=== PATIENT | male | born 1975 | race Caucasian/White ===

== ENCOUNTER 2023-04-11 11:51 | Emergency (ER) | payer MEDICAID, SELFPAY ==
[2023-04-11 11:52] VITALS: BP 169/99; PULSE 100; RESP 18; TEMP 36.8; O2SAT 99; BMI 37.8
[2023-04-11 12:00] VITALS: BP 156/82; PULSE 94; RESP 20; O2SAT 95
--- NOTE | 2023-04-11 12:02 | XR_ITS ---
PROCEDURE INFORMATION: Exam: XR Right Tibia and Fibula Exam date and time: 04/11/2023 12:18 PM Age: 47 years old Clinical indication: Injury or trauma; Other: Ankle gave out; Additional info: R ankle injury TECHNIQUE: Imaging protocol: Radiologic exam of the right tibia and fibula. Views: 2 views. COMPARISON: CR XR ANKLE RT 2V 04/11/2023 12:18 PM FINDINGS: Bones/joints: Complex comminuted ankle fracture involving distal tibia and fibula with gross malalignment. Remainder of the osseous structures of the tibia and fibula are intact. Soft tissues: Unremarkable. IMPRESSION: Complex comminuted ankle fracture. Please refer to report of right ankle.
--- NOTE | 2023-04-11 12:02 | XR_ITS ---
PROCEDURE INFORMATION: Exam: XR Right Foot Exam date and time: 04/11/2023 12:18 PM Age: 47 years old Clinical indication: Injury or trauma; Other: Ankle gave out; Other: Anklke gave out; Additional info: R ankle injury TECHNIQUE: Imaging protocol: Radiologic exam of the right foot. Views: 1 or 2 views. 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 There is malalignment involving the 1st and 2nd tarsal metatarsal joints with widening of the 1st intermetatarsal space indicating a Lisfranc's injury of indeterminate age. Additional degenerative changes involving the 1st 2nd and 3rd MTP joint. Acute comminuted fractures of the distal tibia and fibula again noted. Soft tissues: Normal. IMPRESSION: 1. 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 Please correlate with history. 2. Additional findings involving the 1st and 2nd tarsal metatarsal joints suggestive of underlying Lisfranc's dislocation which could be further assessed on CT exam
--- NOTE | 2023-04-11 12:02 | XR_ITS ---
PROCEDURE INFORMATION: Exam: XR Right Ankle Exam date and time: 04/11/2023 12:18 PM Age: 47 years old Clinical indication: Injury or trauma; Other: Ankle gave out; Additional info: R ankle injury TECHNIQUE: Imaging protocol: Radiologic exam of the right ankle. Views: 1 or 2 views. COMPARISON: CR XR FOOT RT 2V 04/11/2023 12:18 PM FINDINGS: Limitations: Evaluation is technically limited due to lack of AP projection. Bones/joints: Complex comminuted displaced fractures of the distal tibia and fibula with malalignment at the ankle mortise difficult to adequately assess on this study. Soft tissues: Diffuse soft tissue swelling along the ankle mortise. IMPRESSION: 1. Limited study. 2. Complex comminuted fractures distal tibia and fibula with gross malalignment at the ankle mortise. CT examination of the ankle and foot recommended for further evaluation.
--- NOTE | 2023-04-11 12:25 | PC.NURSE ---
rad at for cxr
[2023-04-11 12:30] VITALS: BP 170/99; PULSE 100; RESP 20; O2SAT 98
--- NOTE | 2023-04-11 12:30 | ED_ITS ---
Discharge Plan Disposition Patient Disposition: Home, Self-Care Condition: Good Prescriptions Prescriptions: New oxycodone 5 mg tablet 5 mg PO Q8H PRN (Reason: severe pain (scale score 7-10)) Qty: 8 0RF Referrals Follow up/Referrals: Hernesto Zheng DO [Staff Physician] - See instructions (R ankle/foot) Madi Saxena MD [Primary Care Provider] - See instructions Activity Restrictions/Add. Instructions Additional Instructions/Restrictions: You were evaluated in the ER. You are appropriate for discharge at this time. Keep the splint clean and dry. Elevate the foot to help with swelling. If you notice discoloration, numbness, pain, or any new/worsening symptoms, return to the ER. Do not get the splint wet, do not apply any pressure to the splint. Use crutches to get around. Call Dr. Zheng's office first thing tomorrow morning and make an appointment. Take the prescribed oxycodone if needed for breakthrough pain, otherwise just take Tylenol and ibuprofen. Do not exceed recommended doses on the bottle. Follow-up with your primary care physician as well. Return to the ER with new, worsening, or otherwise concerning symptoms. Clinical Impressions Clinical Impression: Fracture of right tibia and fibula Other Amb Orders Other Ambulatory Orders: XR ankle RT 2V (Routine) Timeframe: 20230411 Facility: [facility] - Location: Radiology Ordered By: Gopal Dodson XR foot RT 2V (Routine) Timeframe: 20230411 Facility: [facility] - Location: Radiology Ordered By: Gopal Dodson XR tibia fibula RT 2V (Routine) Timeframe: [id number] Facility: [facility] - Location: Radiology Ordered By: Gopal Dodson Discharge ED Provider: Gopal Dodson General Adult HPI General Chief complaint: Extremity Injury, Lower Stated complaint: fall Time Seen by Provider: 04/11/23 12:21 Mode of Arrival: EMS Source of Information: Patient and EMS Limitations: Physical Limitations Description of Symptoms (Recalled from ER Triage Doc. by RN): Patient states he was taking trash out this morning and slid and dislocated his right ankle. Patient states he fell a couple days ago and twisted the same ankle but only noticed some bruising. History of Present Illness HPI narrative: This reportedly otherwise healthy 47-year-old male who takes no daily medicat ions, no known drug allergies presents to the ER with concerns of right ankle pain. Patient states he was taking the trash out when his right ankle gave out twisting to the inside. He states he only noticed some bruising but was unable to walk and had to crawl back to the house. Patient states he also fell a few days ago but has been able to ambulate since that time until today. He denies any other injuries in the accident. No other complaints. He has not taken any medications for pain. Related Data Previous Rx's Medication Instructions Recorded oxycodone 5 mg tablet 5 mg PO Q8H PRN severe pain (scale 04/11/23 score 7-10) #8 tabs Allergies Allergy/AdvReac Type Severity Reaction Status Date / Time No Known Allergies Allergy Verified 04/11/23 12:02 [facility] Disclaimer: The information contained in this section may have been updated after the patient was seen, as this information can be updated by other users. Social History Smoking Status: Never smoker alcohol intake: never current occupational status: other Travel in the last 8 weeks: None ROS Obtained: Yes All systems reviewed & no additional complaints except as documented Constitutional Constitutional: Denies chills, Denies fever(s), Denies headache(s) and Denies weakness Eyes Eyes: Denies change in vision ENT Ears, Nose, Mouth, and Throat: Denies dizziness, Denies headache(s), Denies nasal congestion and Denies sore throat Cardiovascular Cardiovascular: Denies chest pain, Denies dyspnea and Denies leg edema Respiratory Respiratory: Denies cough and Denies dyspnea Gastrointestinal Gastrointestingal: Denies constipation, diarrhea, nausea or vomiting Genitourinary Male Genitourinary: Denies difficulty urinating Musculoskeletal Musculoskeletal: Reports arthralgias, Reports deformity, Reports joint swelling, Denies myalgias, Denies numbness and Denies tingling Integumentary/Breasts Skin/Breast: Denies change in pigmentation Neurologic Neurologic: Denies dizziness, Denies headache(s), Denies numbness, Denies tingling and Denies weakness Physical Exam General General appearance: alert and in no apparent distress Head Head exam: atraumatic and normocephalic Eye Eye exam: Present PERRL and EOMI ENT ENT exam: Present mucous membranes moist Neck Neck exam: Present normal inspection and full ROM Chest Chest inspection: Present symmetric chest wall rise Respiratory Respiratory exam: Absent respiratory distress or stridor Cardiovascular Cardiovascular exam: Present regular rate and normal rhythm Abdominal Exam Abdominal exam: Present soft; Absent distention or tenderness Extremities Exam Extremities exam: Present tenderness (Pain, tenderness, swelling to right ankle with deformity. 2+ pulses distally, patient is able to move the toes and has full sensation. Neurovascularly intact.) and joint swelling; Absent full ROM (Unable to range the right ankle secondary to swelling, deformity, pain) Neurological Exam Neurological exam: Present alert and oriented X3; Absent motor sensory deficit Psychiatric Psychiatric exam: Present normal affect and normal mood Skin Skin exam: Present warm and dry Medical Decision Making Christian Inquiry Pt receiving controlled substance: Yes Christian was queried for this patient: Yes Risks and benefits of using a controlled substance: were discussed with pt by me Vital Signs: 04/11/23 11:52 04/11/23 12:00 04/11/23 12:30 Temperature 98.2 F Temperature Source Tympanic Pulse Rate 94 H 100 H Pulse Rate [Left] 100 H Respiratory Rate 18 20 20 Blood Pressure 156/82 H 170/99 H Blood Pressure [Right Arm] 169/99 H Blood Pressure Mean 106 111 Blood Pressure Mean [Right Arm] 122 Blood Pressure Source [Right Arm] Automatic Cuff 02 Sat by Pulse Oximetry 99 95 98 Oxygen Delivery Method Room Air 04/11/23 13:00 04/11/23 14:55 Temperature 98.5 F Temperature Source Pulse Rate 97 H 90 Pulse Rate [Left] Respiratory Rate 20 20 Blood Pressure 159/102 H 159/102 H Blood Pressure [Right Arm] Blood Pressure Mean 112 Blood Pressure Mean [Right Arm] Blood Pressure Source [Right Arm] 02 Sat by Pulse Oximetry 96 Oxygen Delivery Method Room Air Orders (Tests/Meds): ED MEDICATIONS Discontinued Medications Generic Name Dose Route Start Last Admin Trade Name Freq PRN Reason Stop Dose Admin Lidocaine HCl 40 ml 04/11/23 13:02 04/11/23 13:52 Lidocaine 1% 20ml Mdv IJ 04/11/23 13:03 Not Given ONCE ONE Oxycodone HCl 5 mg 04/11/23 12:31 04/11/23 12:54 Oxycodone 5mg Immediate Release Tablet PO 04/11/23 12:32 5 mg ONCE ONE Administration ORDERS Category Date Time Status CT ankle RT wo con Stat Cat Scan 04/11/23 13:[address] foot RT wo con Stat Cat Scan 04/11/23 13:51 Completed Ankle XR -Right minimum 3 Views [XR ankle RT min 3V] Exams 04/11/23 13:51 Completed Stat Foot XR right 2 views [XR foot RT 2V] Stat Exams 04/11/23 12:02 Completed XR ankle RT 2V Stat Exams 04/11/23 12:02 Completed XR tibia fibula RT 2V Stat Exams 04/11/23 12:02 Completed Medical Decision Narrative: In summary, this 47year old male presents to the emergency department today with right ankle pain after fall. On initial evaluation patient is hemodynamically stable, afebrile, has obvious deformity, swelling, pain with mild bruising of the right ankle, neurovascularly intact distally, no other abnormalities on exam. Differential diagnosis includes but is not limited to fracture, dislocation, sprain, neurovascular injury. Based on these concerns, I ordered x- ray imaging of the right lower extremity. Patient received oral oxycodone for treatment. XR personally interpreted demonstrates both bone fracture of the right ankle as well as possible findings of Lisfranc fracture. See radiology read for final interpretation. I had an interactive discussion with Dr. Zheng with orthopedics regarding patient's injury. At this time he recommends reduction, splinting, CT imaging of the injury after reduction, and outpatient follow-up. Patient's right lower extremity was reduced and splinted. See procedure note for details. Postreduction films were personally interpreted and demonstrate improved alignment of fracture. Patient continues to be neurovascularly intact throughout. CTs were ordered and performed for surgical planning. See radiology reads for interpretations. On reassessment patient remained stable, he has tolerated procedures well and is appropriate for discharge. He was given instructions on symptomatic management including prescription for oxycodone, follow-up instructions, instructions for splint care, and strict return precautions for the ER. He indicated understanding patient was discharged in stable condition. Procedures Orthopedic Fracture Reduction Fracture #1: Time Out Performed: Yes Side: right Fracture Reduction Location: tibia and fibula Analgesia: none (Patient tolerated manipulation extremely well without pain after having only received oral oxycodone) Technique: direct manipulation and traction/counter-traction Post Reduction X-rays Demonstrate: acceptable reduction Post-reduction neuro exam: intact and no change Post-reduction vascular exam: intact and no change Splint Applied: Yes (Splint personally applied and adjusted by myself. Neurovascularly intact) Patient Tolerated Procedure: well Critical Care Critical Care Time Critical Care Time: No
[2023-04-11] MEDS: OXYCODONE 5MG IMMEDIATE RELEASE TABLET 5 MG PO (12:54)
--- NOTE | 2023-04-11 12:57 | PC.NURSE ---
DR MIRANDA SPEAKING WITH DR CROWDER
[2023-04-11 13:00] VITALS: BP 159/102; PULSE 97; RESP 20; O2SAT 96
--- NOTE | 2023-04-11 13:51 | XR_ITS ---
PROCEDURE INFORMATION: Exam: XR Right Ankle Exam date and time: 04/11/2023 1:51 PM Age: 47 years old Clinical indication: Injury or trauma; Other: Post reduction; Other: Ankle TECHNIQUE: Imaging protocol: Radiologic exam of the right ankle. Views: 3 or more views. COMPARISON: CR XR ANKLE RT 2V 04/11/2023 12:18 PM FINDINGS: Limitations: Assessment is limited due to obscuring cast. Bones/joints: Acute comminuted fracture distal fibula with mild displacement/malalignment. Acute transverse fracture distal tibia. Mild malalignment at the ankle mortise. No nathan dislocation. Soft tissues: Unremarkable. IMPRESSION: 1. Limited study. 2. Acute comminuted fracture distal fibula acute transverse fracture distal tibia with some malalignment at the ankle mortise. No nathan dislocation.
--- NOTE | 2023-04-11 13:51 | CT_ITS ---
PROCEDURE INFORMATION: Exam: CT Right Lower Extremity Without Contrast, Ankle Exam date and time: 04/11/2023 2:08 PM Age: 47 years old Clinical indication: Injury or trauma; Fall; Other: Post reduction (ankle gave out); Additional info: Fall FX TECHNIQUE: Imaging protocol: CT of the right lower extremity without contrast was performed. Exam focused on the ankle. Radiation optimization: All CT scans at this facility use at least one of these dose optimization techniques: automated exposure control; mA and/or kV adjustment per patient size (includes targeted exams where dose is matched to clinical indication); or iterative reconstruction. COMPARISON: CR XR ANKLE RT MIN 3V 04/11/2023 1:51 PM FINDINGS: Bones/joints: Acute comminuted transverse fracture distal tibia with slight malalignment. Multiple small bone fragments along the fracture line. There also small bone fragments interposed between the talar dome and tibial plafond resulting in asymmetric widening of the ankle mortise. There is a comminuted fracture of the distal fibula with some overriding and malalignment of the fracture components. Degenerative changes in the midfoot partially visualized. Soft tissues: Generalized soft tissue swelling along the ankle mortise. IMPRESSION: 1. Acute comminuted fractures distal tibia and fibula with multiple small bone fragments at the fracture sites. 2. Multiple small bone fragments along the ankle mortise resulting in mild malalignment. 3. Midfoot osteoarthritis (please refer to CT exam of the midfoot).
--- NOTE | 2023-04-11 13:51 | CT_ITS ---
PROCEDURE INFORMATION: Exam: CT Right Lower Extremity Without Contrast, Foot Exam date and time: 04/11/2023 2:11 PM Age: 47 years old Clinical indication: Injury or trauma; Fall; Other: Post reduction(ankle gave out); Additional info: Fall known FX TECHNIQUE: Imaging protocol: CT of the right lower extremity without contrast was performed. Exam focused on the foot. Radiation optimization: All CT scans at this facility use at least one of these dose optimization techniques: automated exposure control; mA and/or kV adjustment per patient size (includes targeted exams where dose is matched to clinical indication); or iterative reconstruction. COMPARISON: CR XR FOOT RT 2V 04/11/2023 12:18 PM FINDINGS: Bones/joints: There is a comminuted transverse fracture of the distal tibia just above the tibial plafond with small comminuted bone fragments along the fracture line. There is slight malalignment. There is a more comminuted fracture of the distal fibula above the lateral malleolus with 5 mm posterior displacement of the main fracture component multiple small bone fragments. There are multiple small bone fragments interposed between the tibial plafond and talar dome contributing to asymmetric widening of the ankle mortise. Moderate-advanced degenerative changes within the midfoot with degenerative joint space narrowing subchondral sclerosis marginal spurring and subchondral cyst formation. Findings are most pronounced at the tarsometatarsal articulation . There are multiple joint subluxations at the tarsometatarsal articulations with lateral diversion of the 2nd through 5th metatarsals and widening of the 1st intermetatarsal space indicating a Lisfranc separation. There are multiple loose bodies within the midfoot. Findings may in part be secondary to neuropathic joint. There are additional degenerative changes involving the 2nd and 3rd MTP joints with some deformity in flattening of the distal metatarsal heads. Soft tissues: Normal. IMPRESSION: 1. Acute comminuted fractures involving the distal tibia and distal fibula with multiple small bone fragments at the fracture site and interposed between the tibial plafond and talar dome resulting in mild malalignment of the ankle mortise. 2. Moderate-advanced midfoot osteoarthritis with superimposed Lisfranc's dislocation possibly secondary to neuropathic joint. Please correlate with history. 3. Degenerative changes 2nd and 3rd MTP joints with some deformity in flattening of the metatarsal heads.
[2023-04-11 14:55] VITALS: BP 159/102; PULSE 90; RESP 20; TEMP 36.9; O2SAT 96
--- NOTE | 2023-04-15 04:32 | PC.NURSE ---
chart accessed for ortho papers
== END 2023-04-11 14:58 | disposition home or self-care (01) ==
PROVIDERS: Emergency Provider Emergency Medicine; PCP Internal Medicine Adolescent Medicine
DX: S82.301A Unspecified fracture of lower end of right tibia, initial encounter for closed fracture; W18.40XA Slipping, tripping and stumbling without falling, unspecified, initial encounter; M25.571 Pain in right ankle and joints of right foot; S82.831A Other fracture of upper and lower end of right fibula, initial encounter for closed fracture
CPT/HCPCS: 27788; 27825; 73590; 73600; 73610; 73620; 73700; 99285

== ENCOUNTER 2023-04-13 11:58 | Outpatient (CLI) | payer MEDICAID, SELFPAY ==
--- NOTE | 2023-04-13 | ECG_ITS ---
APPROVED REPORT Exam: Resting ECG HR:98 bpm ECG Measurements Heart Rate 98 AXES VT 116 P 41 QRSd 88 QRS 31 QT 341 T -76 QTc 396 Conclusion SINUS RHYTHM WITH SHORT VT INTERVAL LEFT VENTRICULAR HYPERTROPHY NSST TW changes ABNORMAL ECG UNCONFIRMED REPORT Electronically signed by : Madi Saxena MD 04/13/2023 16:35:55
--- NOTE | 2023-04-13 12:26 | XR_ITS ---
FINAL REPORT CLINICAL HISTORY: Pre Op- surgery on right foot. soa FINDINGS: There is no evidence of effusion or other pleural disease. The lungs are hypoinflated with moderate right basilar atelectasis. The mediastinum has a normal appearance. The cardiac silhouette is unremarkable. IMPRESSION: Hypoinflation with moderate right basilar atelectasis. Reviewed, Interpreted and Dictated by David Gagnon MD Transcribed by Hanna Chow Authenticated and [facility]
[2023-04-13 12:47] LABS: Basophils # 0.1 K/mm3 (0-0.2); Basophils % 0.5 % (0.1-2.0); Eosinophils # 0.1 K/mm3 (0.0-0.4); Eosinophils % 1.2 % (0.1-12.0); Hematocrit 37.4 % (42.0-52.0); Hemoglobin 12.9 g/dL (14.1-18.0); Lymphocytes # 1.7 K/mm3 (0.7-4.5); Lymphocytes % 15.1 % (10-50); Mean Corpuscular HGB Conc 34.5 g/dL (31.8-35.4); Mean Corpuscular Hemoglobin 30.3 pg (27.0-31.2); Monocytes # 1.1 K/mm3 (0.1-1.0); Monocytes % 9.3 % (1.7-9.3); Neutrophils # 8.4 K/mm3 (1.8-7.8); Neutrophils % 73.9 % (37.0-80.0); Platelet Count 268 K/mm3 (142-424); Red Blood Count 4.25 M/mm3 (4.60-6.20); Red Cell Distribution Width 13.4 % (11.5-17.5); White Blood Count 11.3 K/mm3 (4.8-10.8)
[2023-04-13 12:57] LABS: Chloride 99 mmol/L (98-107); Potassium 4.2 mmoL/L (3.5-5.1); Sodium 133 mmol/L (136-145)
[2023-04-13 13:00] LABS: Alanine Aminotransferase 20 U/L (12-78); Albumin Level 3.3 g/dl (3.5-5.0); Albumin/Globulin Ratio 1.2 (1.1-1.8); Alkaline Phosphatase 111 U/L (38-126); Anion Gap 11.2 mEq/L (5-15); Aspartate Amino Transferase 27 U/L (17-59); Bilirubin,Total 1.2 mg/dl (0.2-1.3); Blood Urea Nitrogen 12 mg/dl (9-20); Carbon Dioxide 27 mmol/L (22.0-30.0); Estimated Glomerular Filt Rate 145 ml/min (>60); GFR (African American) 176 ML/MIN (>60); Globulin 2.8 g/dL (1.3-3.2); Total Protein,Serum 6.1 g/dl (6.3-8.2)
[2023-04-13 13:01] LABS: Glucose 265 mg/dl (74-100)
== END 2023-04-13 23:59 ==
PROVIDERS: Visit Provider Orthopaedic Surgery
DX: Z01.818 Encounter for other preprocedural examination (principal); S82.201A Unspecified fracture of shaft of right tibia, initial encounter for closed fracture; S82.401A Unspecified fracture of shaft of right fibula, initial encounter for closed fracture
CPT/HCPCS: 36415; 71046; 80053; 85025; 93005

== ENCOUNTER 2023-04-27 09:01 | Outpatient (CLI) | payer MEDICAID, SELFPAY ==
--- NOTE | 2023-04-27 09:06 | XR_ITS ---
FINAL REPORT CLINICAL HISTORY: right ankle fx COMPARISON: 04/11/2023 FINDINGS: RIGHT ANKLE: Three views of the right ankle were obtained. There is a comminuted fracture of the distal fibula once again identified, stable since the prior exam of April 11. There is also a transverse fracture of the distal tibia, also stable. There is callus formation identified new since the prior exam. There is a density in the superior midfoot seen on the lateral view only, that may represent a fracture fragment or may be in cast material. Relation is suggested. IMPRESSION: Comminuted fracture of the distal fibula, transverse fracture of the distal tibia, stable with slight callus formation since the prior exam of April 11. Density in the superior midfoot seen on the lateral view only, finding of uncertain significance but may represent a fracture fragment or be related to the patient's cast. Reviewed, Interpreted and Dictated by Brian Jamison III, MD Transcribed by Nereida Hull Authenticated and [facility]
== END 2023-04-27 23:59 ==
PROVIDERS: PCP Nurse Practitioner Family; Visit Provider Orthopaedic Surgery
DX: S82.891D Other fracture of right lower leg, subsequent encounter for closed fracture with routine healing (principal); W17.81XD Fall down embankment (hill), subsequent encounter
CPT/HCPCS: 73610

== ENCOUNTER 2023-05-24 06:26 | Outpatient (CLI) | payer MEDICAID, SELFPAY ==
[2023-05-24] VITALS (9 sets, daily range): BP systolic 94–164; BP diastolic 51–97; PULSE 63–90; RESP 16–18; O2SAT 98–99; BMI 36.9
--- NOTE | 2023-05-24 06:31 | CT_ITS ---
APPROVED REPORT Development Chemist: CLINICAL INDICATION Chest Pain TECHNIQUE Image Acquisition: A 128 slice MDCT scanner ([place] View) was used for data acquisition. A noncontrast coronary calcium scan was performed. A CT attenuation threshold of 130 Hounsfield units (HU) was used for the detection of calcium in contiguous voxels of 1 sq mm in area to be counted as individual lesions. Bolus tracking in the ascending aorta with a threshold of 180 HU was performed. Immediately afterwards, ECG synchronized cardiac CT was then performed from the cardiac base to apex using retrospective gating with ECG tube current modulation. A total of 85 mL of Isovue 370 mg/mL contrast medium was administered at 5 mL/sec followed by a saline flush using a biphasic injection protocol. A tube voltage of 120 KVp was used. The patient received the following medications prior to the cardiac CT. 125 mg of oral metoprolol 15 mg of intravenous metoprolol 15 mg of oral ivabradine 0.8 mg of sublingual nitroglycerin The average heart rate at the time of acquisition was 62 bpm and regular. Image Reconstruction Transaxial images were reconstructed at 0.67 mm slide thickness. Data was reviewed interactively on an advanced workstation capable of 2 and 3-dimensional displays in all conventional reconstruction formats, including multiplanar reformations, maximum intensity projections, curved multiplanar reformations, and volume rendered reconstructions. When applicable, selected routine images describing the relevant coronary anatomy and pathology were saved and sent to PACS. Complications None Technical Quality Overall image quality was good. Coronary artery opacification was adequate. Total DLP (Dose-Length Product) is 1324.5 mGy-cm. The reported value represents the total of one or more individual components during the CT acquisition of this date and at this time, and as such, the same value may appear in more than one CT report depending on the interpreting/reporting physicians. COMPARISON None FINDINGS CT Coronary Calcium Scoring LMA (Left Main Artery) = 0 LAD (Left Anterior Descending) = 38 LCX (Left Coronary Circumflex) = 191 RCA (Right Coronary Artery) = 19 Total Calcium Score = 247 using the AJ-130 method. The observed calcium score of 247 is at 98th percentile for subjects of the same age, sex, and race/ethnicity. The interpretation of the calcium heart score is based on the following continuum*: 0 = no calcified plaque detected (risk of coronary artery disease is very low ??? less than 5%) 1-10 = calcium detected in extremely minimal levels (risk of coronary diseases is still low ??? less than 10%) 11-100 = mild levels of plaque detected with certainty (mild or minimal narrowing of heart arteries is likely) 101-400 = definite,at least moderate levels of plaque detected (relatively high risk of a heart attack within 3-5 years) >401-999 = extensive levels of plaque detected (high risk of heart attack, high levels of vascular disease are present, high likelihood of at least one significant coronary narrowing) *The calcium heart score quantifies the burden of coronary calcification/plaque in the coronary arteries. The calcium heart score is not able to evaluate the presence or burden of non-calcified (i.e. soft) plaque. There is no identifiable calcification in the aortic valve, mitral annulus or mitral valve, pericardium, or myocardium. Coronary CT Angiography The coronary arterial system is right dominant. Quantitative Stenosis Grading: Left Main (LM): The left main originates normally from the left sinus of Valsalva. The LM bifurcates into the left anterior descending artery and left circumflex artery. The LM is patent with no evidence of atherosclerosis. Left Anterior Descending (LAD) and Diagonal Branches: The LAD gives off 3 diagonal branches. There is calcified plaque along the proximal LAD segment, but without luminal stenosis. There is no evidence of LAD-myocardial bridge. Left Circumflex (LCX) and Obtuse Marginals (OM): The LCX gives off 1 Obtuse Marginal (OM) branch. There is calcified plaque in the proximal and mid LCx segment, with 25-49% mild luminal stenosis in the mid LCx segment. Right Coronary Artery (RCA): The RCA originates normally from the right sinus of Valsalva. The RCA gives off a posterior descending artery (PDA) and posterolateral (PL) branches. There is calcified plaque along the proximal RCA, but without luminal stenosis. Non-Coronary Cardiac Findings: Analysis of the left ventricular (LV) structure and function was performed after 3-D reconstruction of the LV from axial images, with user-corrected automatic contouring for assessment of LV volumes and user-defined reconstruction from oblique planes for measurement of 3-D cardiac structure and function. -The left ventricle systolic function is normal. -There is no left atrial appendage filling defect. Two right pulmonary veins and two left pulmonary veins drain normally into the left atrium. -No pericardial thickening or calcification. -Central and branch pulmonary arteries in the [id number] are unremarkable. -Thoracic aorta within the visualized thoracic aortic-branches in the [id number] is unremarkable. Extracardiac Structures No significant extra-cardiac findings. Note, however, that this study is focused on the cardiac findings. IMPRESSION -Presence of coronary calcification with an Agatston score = 247 using the AJ-130 method. -The observed calcium score of 247 is at 98th percentile for subjects of the same age, sex, and race/ethnicity. -No evidence of significant flow-limiting atherosclerosis of the coronary arteries. -CAD-RADS 2. Management recommendations per ACC/AHA guidelines*, as clinically appropriate. *Recommendations: CAD RADS 0: Reassurance. Consider non-atherosclerotic causes of chest pain. CAD RADS 1: Consider non-atherosclerotic causes of chest pain. Consider preventive therapy and risk factor modification. CAD RADS 2: Consider non-atherosclerotic causes of chest pain. Consider preventive therapy and risk factor modification, particularly for patients with nonobstructive plaque in multiple segments. CAD RADS 3: Consider further functional testing. Consider symptom-guided anti-ischemic and preventive pharmacotherapy as well as risk factor modification per published guideline statements. CAD RADS 4A: Consider further functional testing or invasive coronary angiography with revascularization per published guideline statements. Consider symptom-guided anti-ischemic and preventive pharmacotherapy as well as risk factor modification per published guideline statements. CAD RADS 4B: Invasive coronary angiography recommended with revascularization per published guideline statements. Consider symptom-guided anti-ischemic and preventive pharmacotherapy as well as risk factor modification per published guideline statements. CAD RADS 5: Consider invasive angiography and/or viability assessment with revascularization per published guideline statements. Consider symptom-guided anti-ischemic and preventive pharmacotherapy as well as risk factor modification per published guideline statements. CRITICAL RESULT None COMMUNICATION Per this written report The coronary and cardiac findings of this CCTA were reviewed, reported, and signed by Theo Briones MD (Curator Of Collections) Conclusion Electronically signed by : Odilia Briones MD 05/27/2023 14:37:26
[2023-05-24] MEDS: IVABRADINE HCL 7.5MG TABLET *IVABRADINE+METOPROLOL REGIMINE 15 MG PO (07:34)
[2023-05-24] MEDS: METOPROLOL TARTRATE 50MG TABLET *IVABRADINE+METOPROLOL REGIMINE 75 MG PO (07:34)
[2023-05-24 08:22] LABS: Blood Urea Nitrogen 8 mg/dl (9-20); Calcium 9.8 mg/dl (8.4-10.2); Carbon Dioxide 30 mmol/L (22.0-30.0); Chloride 101 mmol/L (98-107); Creatinine Clearance Estimated 247 mL/min (50-200); Estimated Glomerular Filt Rate 145 ml/min (>60); GFR (African American) 176 ML/MIN (>60); Glucose 125 mg/dl (74-100); Sodium 139 mmol/L (136-145)
[2023-05-24] MEDS: METOPROLOL TARTRATE 50MG TABLET *IVABRADINE+METOPROLOL REGIMINE 50 MG PO (08:29)
[2023-05-24] MEDS: METOPROLOL TARTRATE 5MG/5ML VIAL *IVABRADINE+METOPROLOL REGIMINE 5 MG IV ×3 (09:20→09:33)
[2023-05-24] MEDS: NITROGLYCERIN 0.4MG SL TABLET 0.800000000000000044 MG SL (09:20)
[2023-05-24] MEDS: 0.9 % SODIUM CHLORIDE 50 ML VIAL IV (09:38)
[2023-05-24] MEDS: SODIUM CHLORIDE 0.9% 10ML SYR (RAD ONLY) 10 ML IV (09:38)
[2023-05-24] MEDS: IOPAMIDOL-370 (76%);100ML BOTTLE 85 ML IV (09:38)
--- NOTE | 2023-05-24 09:57 | CA_ITS ---
APPROVED REPORT EXAM: Comprehensive 2D, Doppler, and color-flow Echocardiogram Aluminum Can Collector: Nury Maguire RVT Ht: 5 ft 9 in Wt: 250lbs BSA: 2.27 BP: 163/95 mmHg Indications: PRE-OP,ABN EKG,CP,DM,HTN,HLD 2D Dimensions LA Volume 46.00 mL LA Volume Index 20.26 mL/m2 (M/F) 16-34 M-Mode Dimensions RVDd 3.17 cm (0.9-2.6) LA Diam 3.65 cm (1.9-4.0) LVDd 4.74 cm (3.5-5.7) LVDs 3.29 cm (3.5-5.7) IVSd 0.80 cm (0.6-1.1) PWd 0.68 cm (0.6-1.1) EF (Teich) 58.00% FS 30.60% EDV (Teich) 104.40 mL TAPSE 2.15 (<1.7) ESV (Teich) 43.80 mL LV Diastology E Decel Time 150 (160-240 msec) E/A Ratio 1.9 Aortic Valve JOSE Index 1.45 cm2/m2 AoV Peak Aquiles. 116.0 (50-130 cm/s) AO Peak GR. 5.40 mmHg AO Mean GR. 3.10 (<5 mmHg) AO VTI 23.5 (18-25 cm) JOSE (VTI) 3.38 (2.5-4.5 cm2) Mitral Valve MV E Max Aquiles. 80.0 (40-130 cm/s) MV A Velocity 43.0 (40-130 cm/s) E/A Ratio 1.86 MV PHT 44.0 ms Pulmonary Valve PV Peak Velocity 64.0 (50-150 cm/s) Tricuspid Valve TR P. Velocity 224.00 cm/s RAP Estimate 10.00 mmHg RVSP 30.10 mmHg Left Ventricle The left ventricle is normal size. The left ventricular systolic function is normal. The left ventricular ejection fraction is within the normal range. There is normal left ventricular wall thickness. There is normal LV segmental wall motion. The left ventricular diastolic function is normal. LVEF is 55%. Right Ventricle The right ventricle is normal size. The right ventricular systolic function is normal. Atria The left atrium size is normal. The right atrium size is normal. There is no Doppler evidence of interatrial shunt. Aortic Valve The aortic valve opens well. There is no aortic valvular stenosis. Trace aortic regurgitation. Mitral Valve The mitral valve is normal in structure. No evidence of mitral valve stenosis. There is no mitral valve regurgitation noted. Tricuspid Valve The tricuspid valve leaflets are thin and pliable. Trace tricuspid regurgitation. There is insufficient TR jet to estimate RVSP. Pulmonic Valve The pulmonary valve is normal in structure. Trace pulmonic regurgitation. Great Vessels The aortic root is normal in size. The ascending aorta is not well-visualized. IVC is normal in size and collapses >50% with inspiration. Pericardium There is no pericardial effusion. Other Information Study Quality: Fair Conclusion Normal biventricular systolic function. No significant valvular stenosis or regurgitation. Electronically signed by : Odilia Briones MD 05/25/2023 23:29:40
== END 2023-05-24 23:59 | disposition home or self-care (01) ==
PROVIDERS: PCP Nurse Practitioner Family; Visit Provider Physician Assistant
DX: Z01.810 Encounter for preprocedural cardiovascular examination (principal); R94.31 Abnormal electrocardiogram [ECG] [EKG]; I10 Essential (primary) hypertension; E78.5 Hyperlipidemia, unspecified; E11.9 Type 2 diabetes mellitus without complications; Z79.84 Long term (current) use of oral hypoglycemic drugs
CPT/HCPCS: 75571; 75574; 80048; 93306; Q9967

== ENCOUNTER 2023-05-27 14:58 | Outpatient (CLI) | payer MEDICAID, SELFPAY ==
--- NOTE | 2023-05-27 15:16 | XR_ITS ---
FINAL REPORT CLINICAL HISTORY: rt ankle fx Initial injury was March. COMPARISON: 04/27/2023 FINDINGS: RIGHT ANKLE: Three views of the right ankle were obtained. There are fractures of the distal tibia and fibula with callus formation at the fracture site. There is medial angulation of the talus and foot. The joint spaces and mortise are intact. There is no soft tissue abnormality. IMPRESSION: Stable fractures as above. Reviewed, Interpreted and Dictated by Brian Jamison III, MD Transcribed by Jada Cao Authenticated and [facility]
[2023-05-27 16:05] LABS: Basophils # 0.1 K/mm3 (0-0.2); Basophils % 0.9 % (0.1-2.0); Eosinophils # 0.2 K/mm3 (0.0-0.4); Eosinophils % 2.5 % (0.1-12.0); Hematocrit 45.4 % (42.0-52.0); Hemoglobin 14.8 g/dL (14.1-18.0); Lymphocytes % 21.3 % (10-50); Mean Corpuscular HGB Conc 32.7 g/dL (31.8-35.4); Mean Corpuscular Volume 91.8 fl (80-94); Mean Platelet Volume 8.5 fl (7.4-10.4); Monocytes # 0.6 K/mm3 (0.1-1.0); Monocytes % 6.6 % (1.7-9.3); Neutrophils # 6.4 K/mm3 (1.8-7.8); Neutrophils % 68.7 % (37.0-80.0); Platelet Count 271 K/mm3 (142-424); Red Blood Count 4.95 M/mm3 (4.60-6.20); Red Cell Distribution Width 14.6 % (11.5-17.5); White Blood Count 9.4 K/mm3 (4.8-10.8)
[2023-05-27 16:44] LABS: Alanine Aminotransferase 20 U/L (12-78); Albumin Level 4.4 g/dl (3.5-5.0); Alkaline Phosphatase 168 U/L (38-126); Anion Gap 14.2 mEq/L (5-15); Aspartate Amino Transferase 26 U/L (17-59); Bilirubin,Direct 0.1 mg/dl (0.0-0.4); Bilirubin,Indirect 0.5 mg/dL (0.0-0.9); Bilirubin,Total 0.6 mg/dl (0.2-1.3); Bilirubin,Unconjugated 0.5 mg/dL (0.0-1.1); Blood Urea Nitrogen 10 mg/dl (9-20); Calcium 10.1 mg/dl (8.4-10.2); Carbon Dioxide 29 mmol/L (22.0-30.0); Chloride 102 mmol/L (98-107); Chol/HDL Ratio 3.4 (1-3.5); Cholesterol 108 mg/dl (140-200); Estimated Glomerular Filt Rate 145 ml/min (>60); GFR (African American) 176 ML/MIN (>60); Glucose 98 mg/dl (74-100); HDL Cholesterol 32 mg/dl (40-60); Potassium 4.2 mmoL/L (3.5-5.1); Sodium 141 mmol/L (136-145); Total Protein,Serum 6.9 g/dl (6.3-8.2); Triglycerides 78 mg/dl (30-150); VLDL Cholesterol 16 mg/dL (0-40)
[2023-05-27 16:55] LABS: Direct LDL Cholesterol 61.42 mg/dL (100-129)
[2023-05-27 17:00] LABS: Free T4 (Free Thyroxine) 1.09 ng/dl (0.78-2.19)
[2023-05-27 17:13] LABS: Thyroid Stimulating Hormone 1.92 uIU/mL (0.465-4.68)
== END 2023-05-27 23:59 ==
LOC: LAB 16:33
PROVIDERS: PCP Nurse Practitioner Family; Visit Provider Physician Assistant
DX: Z01.810 Encounter for preprocedural cardiovascular examination (principal); I11.9 Hypertensive heart disease without heart failure; E78.5 Hyperlipidemia, unspecified; E11.9 Type 2 diabetes mellitus without complications; R94.31 Abnormal electrocardiogram [ECG] [EKG]; R06.00 Dyspnea, unspecified; K21.9 Gastro-esophageal reflux disease without esophagitis; Z79.84 Long term (current) use of oral hypoglycemic drugs; M25.571 Pain in right ankle and joints of right foot; S82.201A Unspecified fracture of shaft of right tibia, initial encounter for closed fracture; S82.401A Unspecified fracture of shaft of right fibula, initial encounter for closed fracture
CPT/HCPCS: 36415; 73610; 80048; 80061; 80076; 84439; 84443; 85025